=== PATIENT | male | born 1945 | race Caucasian/White ===

== ENCOUNTER 2022-02-23 20:08 | Observation (INO) | payer MEDICARE ==
[~2022-02-23] VITALS: Ht 180.3 cm; Wt 68.2 kg
[2022-02-23] VITALS (15 sets, daily range): BP systolic 111–145; BP diastolic 69–95
--- NOTE | 2022-02-23 20:10 | NUR ---
PATIENT TO ROOM VIA EMS STRETCHER.
--- NOTE | 2022-02-23 20:29 | NUR ---
PATIENT NOT GIVEN ASA HERE HE WAS GIVEN 324 MG OF ASPIRIN VIA EMS.
[2022-02-23 20:47] LABS: HEMATOCRIT 34.2 % (39.0-50.0); HEMOGLOBIN 11.3 g/dl (14.0-18.0); IMMATURE GRANULOCYTES 0.2 % (0.0-5.0); MEAN CELL VOLUME 93.2 fL CALC (80.0-100.0); MEAN CORPUSCULAR HGB 30.8 pG CALC (26.0-32.0); NEUT# 8.04 thou/uL (1.82-7.42); RED BLOOD COUNT 3.67 mill/uL (4.70-6.10); RED CELL DISTRI WIDTH 13.7 % (11.5-15.5)
[2022-02-23 20:59] LABS: ALBUMIN 3.6 g/dL (3.2-5.0); ALKALINE PHOSPHATASE 64 u/l (38-126); AMYLASE 86 u/l (30-110); ANION GAP 9 (6-22 (CALC)); BILIRUBIN, TOTAL 0.7 mg/dL (0.0-1.4); BUN 14 mg/dL (8-23); BUN/CREATININE RATIO 41 (12-20 (CALC)); CARBON DIOXIDE 22 mmol/l (22-30); CHLORIDE 108 mmol/l (95-108); CREATININE 0.3 mg/dL (0.7-1.3); GFR FOR AFR.AMER. > 60 ML/MIN (>=60 (CALC)); GFR OTHER RACES > 60 ML/MIN (>=60 (CALC)); LIPASE 66 u/l (23-300); POTASSIUM 3.5 mmol/l (3.5-5.1); SGOT/AST 51 u/l (19-48); SODIUM 136 mmol/l (137-146); TOTAL PROTEIN 6.7 g/dL (6.3-8.2)
[2022-02-23 21:13] LABS: MYOGLOBIN 347 ng/mL (0 - 121)
[2022-02-24] VITALS (13 sets, daily range): BP systolic 114–153; BP diastolic 61–99
--- NOTE | 2022-02-24 00:57 | NUR ---
TO FLOOR VIA STRETCHER/ON POCKET MONITOR WITH NURSING COMMERCIAL CREDIT REVIEWER. ATTEMPTED TO CALL REPORT.
--- NOTE | 2022-02-24 01:02 | NUR ---
PATIENT ARRIVED ON FLOOR ACCOMPANIED BY ER STAFF.
[2022-02-24] MEDS ORDERED: GABAPENTIN100 MG PO (01:42)
[2022-02-24] MEDS ORDERED: TAMSULOSIN HCL0.4 MG PO (01:56)
[2022-02-24] MEDS ORDERED: FINASTERIDE5 MG PO (02:04)
[2022-02-24] MEDS ORDERED: LISINOPRIL10 MG PO (02:04)
[2022-02-24] MEDS ORDERED: HYDROCO/APAP1 TA9 PO (02:09)
--- NOTE | 2022-02-24 04:30 | NUR ---
PATIENT RESTING COMOFRTABLY, NO APPARENT NEEDS. CALL LIGHT AND BEDSIDE TBALE WITHIN REACH.
--- NOTE | 2022-02-24 15:22 | NUR ---
PT SITTING UP ON SIDE OF BED. VITAL SIGNS STABLE. NO NEEDS AT THIS TIME.
--- NOTE | 2022-02-24 17:01 | NUR ---
DC INSTRUCTIONS GIVEN, MEDICATION INSTRUCTIONS GIVEN, IV DCED, TELE DCED. PT TAKEN TO ALF VIA HOSPTIAL TRANSPORT.
--- NOTE | 2022-02-24 17:32 | NUR ---
PT ENDED UP NOT GETTING DCED TO THE DETENTION BECAUSE PT IS UNABLE TO GET UP WITHOUT ASSISTANCE.
[2022-02-25] VITALS (8 sets, daily range): BP systolic 123–146; BP diastolic 69–90
[2022-02-25 06:34] LABS: HEMATOCRIT 38.5 % (39.0-50.0); HEMOGLOBIN 12.7 g/dl (14.0-18.0); MEAN CELL VOLUME 92.8 fL CALC (80.0-100.0); MEAN CORPUSCULAR HGB 30.6 pG CALC (26.0-32.0); RED BLOOD COUNT 4.15 mill/uL (4.70-6.10); RED CELL DISTRI WIDTH 13.6 % (11.5-15.5)
[2022-02-25 06:47] LABS: ANION GAP 13 (6-22 (CALC)); BUN 13 mg/dL (8-23); BUN/CREATININE RATIO 32 (12-20 (CALC)); CARBON DIOXIDE 21 mmol/l (22-30); CHLORIDE 108 mmol/l (95-108); CREATININE 0.4 mg/dL (0.7-1.3); GFR FOR AFR.AMER. > 60 ML/MIN (>=60 (CALC)); GFR OTHER RACES > 60 ML/MIN (>=60 (CALC)); POTASSIUM 3.8 mmol/l (3.5-5.1); SODIUM 138 mmol/l (137-146)
[2022-02-25 09:13] LABS: URINE BILIRUBIN - DIPSTICK NEGATIVE (NEGATIVE); URINE BLOOD DIPSTICK NEGATIVE (NEGATIVE); URINE COLOR YELLOW; URINE GLUCOSE - DIPSTICK NEGATIVE (NEGATIVE); URINE KETONE NEGATIVE (NEGATIVE); URINE LEUK ESTERASE NEGATIVE (NEGATIVE); URINE PROTEIN - DIPSTICK NEGATIVE (NEG-TRACE); URINE SPECIFIC GRAVITY 1.015; URINE UROBILINOGEN - DIPSTICK 0.2 E.U./dL (0.2)
[2022-02-25 09:20] LABS: URINE NITRITE - DIPSTICK NEGATIVE (Negative)
[2022-02-26 04:00] VITALS: BP 131/82
[2022-02-26 04:19] VITALS: BP 131/82
[2022-02-26 07:15] VITALS: BP 136/73
--- NOTE | 2022-02-26 13:13 | NUR ---
PT SEEN VERY WEAK, NEUROLOGICAL DISEASE EVIDENT. PT ASSISTED WITH SETUP FOR MEALS.
--- NOTE | 2022-02-26 14:33 | NUR ---
Patient agreed to participate in physical therapy. He was seated on EOB and perfomed exercises in seated position. Ankle pumps 2x10, LAQ 2x10, isometric HS curl 3SHx10, isometric hip adduction 3SHx20, isometric hip abduction 3SHx20, glute setting 5SHx10. Patient tolerated exercises without any discomfort and was assisted to return to supine position in bed. [facility] remains 14
--- NOTE | 2022-02-26 16:45 | NUR ---
PT CONTINUES TO NEED A LOT OF HELP TO STAND. PT BARELY ABLE TO UNZIP HIS PANTS WHEN HE NEEDS TO VOID.
[2022-02-26 19:48] VITALS: BP 141/87
[2022-02-27 05:01] VITALS: BP 153/75
--- NOTE | 2022-02-27 05:10 | NUR ---
PATIENT ALERT AND ORIENTED X3. PATIENT IS FEELING WEAK AND TIRED. REQUIRES ASSISTANCE WITH TURNING. PATIENT ALSO INCONTINENT OF URINE OCCASIONALLY.
[2022-02-27 06:51] VITALS: BP 109/60
[2022-02-27 10:52] VITALS: BP 106/74
--- NOTE | 2022-02-27 11:07 | NUR ---
PT RESTIGN IN BED. BREATHING EVEN AND UNLABORED. STATES FEELING WEAK. ASSESSMENT PERFORMED. STATES PAIN 3/10, REFUSED LIDOCAINE PATCH. EDUCATED PT ON MEDICATION. PT INDICATED UNDERSTANDING, PT REFUSED. UPDATED PT ON CURRENT POC. STATES NO QUESTIONS/CONCERNS. FALL/SAFTEY PRECAUTION IN PLACE. CALL LIGHT WITHIN REACH
--- NOTE | 2022-02-27 12:23 | NUR ---
PT EATING LUNCH. NO DISTRESS NOTED . BREATHING EVEN AND UNLABORED. FALL/SAfty precaution in place. call light within reach.
--- NOTE | 2022-02-27 15:32 | NUR ---
PT AT BEDSIDE.
--- NOTE | 2022-02-27 18:26 | NUR ---
PT EATING DINNER. NO DISTRESS NOTED. FALL/SAFTEY PRECAUTIONIN PLACE, CALL LIGHT WITHIN REACH
[2022-02-27 18:50] VITALS: BP 116/75
[2022-02-27 19:00] VITALS: BP 116/75
--- NOTE | 2022-02-27 19:58 | NUR ---
Patient lying in bed watching T.v. Patient alert and orientedx3, denies any s/s of pain or discomfort. Pt reported feeling weak and tired.
[2022-02-28 04:17] VITALS: BP 100/67
[2022-02-28 06:47] VITALS: BP 140/75
--- NOTE | 2022-02-28 08:00 | NUR ---
PT RESTING ON SIDE OF THE BED STATES PAIN IN LOWER BACK, FEELING WEAK. ASSESSMENT PERFORMED. UPDATED PT CURRENT PLAN OF CARE. IV PATENT/FLUSHED. FALL/SAFTEY PRECAUTION IN PLACE. CALL LIGHT WITHIN REACH. PT QUESTIONS LISINOPRIL.REQUESTS TO SPEAK TO PHAMACIST. STRUCTURES MECHANIC NOTIFIED. PHARAMACIST NOTIFIED. STATES NO OTHER NEEDS AT THIS TIME.
[2022-02-28 09:48] VITALS: BP 107/64
[2022-02-28 10:37] VITALS: BP 138/72
--- NOTE | 2022-02-28 10:40 | NUR ---
PAULO AT BEDSIDE
--- NOTE | 2022-02-28 10:44 | NUR ---
PT AT BEDSIDE
[2022-02-28 13:22] LABS: HEMATOCRIT 42.1 % (39.0-50.0); HEMOGLOBIN 13.9 g/dl (14.0-18.0); IMMATURE GRANULOCYTES 0.3 % (0.0-5.0); MEAN CELL VOLUME 92.5 fL CALC (80.0-100.0); MEAN CORPUSCULAR HGB 30.5 pG CALC (26.0-32.0); NEUT# 8.76 thou/uL (1.82-7.42); RED BLOOD COUNT 4.55 mill/uL (4.70-6.10); RED CELL DISTRI WIDTH 13.5 % (11.5-15.5)
--- NOTE | 2022-02-28 14:08 | NUR ---
PT SITTING ON THE SIDE OF THE BED WATCHING TV. STATES WANTING TO GO. CALMING VERBAL CUES GIVEN. PT ANXIETY SUBSIDED. FALL/SAFTEY PRECAUTION IN PLACE, CALL LIGHT WITHIN REACH
[2022-02-28 15:44] VITALS: BP 92/55
--- NOTE | 2022-02-28 16:02 | NUR ---
PT COMPLAINING OF PARALYSIS TO RIGHT ARM. PT UNABLE TO MOVE RIGHT ARM BUT IS ABLE TO FEEL SENSATION ALSO HAS [employer] DIRECTOR BILATERALLY. CAPTAIN CANNERY TENDER NOTIFIED/AWARE.
--- NOTE | 2022-02-28 18:00 | NUR ---
PT RESTING ON SIDE OF THE BED. BREATHING EVEN AND UNLABORED. STATES NO N/V. FALL/SAFTEY PRECAUTION IN PLACE. CALL LIGHT WITHIN REACH
[2022-02-28 19:25] VITALS: BP 119/73
[2022-03-01 00:08] VITALS: BP 122/73
[2022-03-01 04:20] VITALS: BP 95/56
[2022-03-01 06:09] VITALS: BP 105/67
[2022-03-01 14:58] VITALS: BP 103/68
[2022-03-01 19:00] VITALS: BP 101/49
[2022-03-02 04:24] VITALS: BP 103/66
[2022-03-02 06:26] VITALS: BP 106/66
[2022-03-02 08:27] VITALS: BP 106/66
[2022-03-02 15:05] VITALS: BP 105/61
[2022-03-02 19:00] VITALS: BP 85/50
[2022-03-02 19:09] VITALS: BP 85/50
[2022-03-03 00:44] VITALS: BP 124/68
[2022-03-03 03:29] VITALS: BP 96/64
[2022-03-03 04:00] VITALS: BP 96/64
[2022-03-03 07:12] VITALS: BP 102/62
[2022-03-03 16:44] VITALS: BP 117/72
[2022-03-03 19:27] VITALS: BP 117/66
[2022-03-04 03:51] VITALS: BP 106/72
[2022-03-04 04:00] VITALS: BP 106/72
[2022-03-04 06:49] VITALS: BP 126/75
[2022-03-04 15:26] VITALS: BP 126/70
[2022-03-04 20:41] VITALS: BP 99/59
[2022-03-04 20:43] VITALS: BP 103/57
[2022-03-05 06:15] VITALS: BP 117/68
[2022-03-05] MEDS ORDERED: FLEXERIL5 M1 PO (08:38)
[2022-03-05] MEDS ORDERED: HYDROCO/APAP1 TA9 PO (10:47)
== END 2022-03-05 13:50 ==
LOC: ED 20:08 → ED-I 21:40 → MS2 22:22 → ED 22:22 → MS2 22:22
PROVIDERS: Emergency Medicine; Internal Medicine; Nurse Practitioner; ADMIT Internal Medicine; ATTEND Internal Medicine
DX: I20.8 Other forms of angina pectoris (principal); F44.4 Conversion disorder with motor symptom or deficit; I10 Essential (primary) hypertension; M54.41 Lumbago with sciatica, right side; G62.9 Polyneuropathy, unspecified; I73.9 Peripheral vascular disease, unspecified; L25.1 Unspecified contact dermatitis due to drugs in contact with skin; T41.3X5A Adverse effect of local anesthetics, initial encounter; F41.1 Generalized anxiety disorder; Z20.822 Contact with and (suspected) exposure to COVID-19; N40.0 Benign prostatic hyperplasia without lower urinary tract symptoms; Z95.828 Presence of other vascular implants and grafts; Z96.89 Presence of other specified functional implants; Z59.1 Inadequate housing; Z53.20 Procedure and treatment not carried out because of patient's decision for unspecified reasons; Z60.2 Problems related to living alone; F43.0 Acute stress reaction
CPT/HCPCS: J1650